=== PATIENT | male | born 1950 | race Caucasian/White ===

== ENCOUNTER 2016-05-11 14:50 | Emergency (ER) | payer OTHER ==
[~2016-05-11 14:50] MED LIST: ACETAMINOPHEN500 MG PO; BENAZEPRIL HCL20 MG PO; CARDIZEM LA180 MG PO; CELEBREX200 MG PO; COLACE EQUIVALENT PO; DIGOXIN0.25 MG PO; FISH OIL TRIP1400 MG PO; GUANFACINE ER2 MG PO; HYDROXYZINE PAM25 MG PO; LOVENOX60 MG/0.6 SC; METOPROLOL TART25 MG PO; MULTIVITAMIN1 TAB PO; OMEPRAZOLE20 M1 PO; OXYCODONE/ACETA1 TA1 PO; VENLAFAXINE HC150 M1 PO; VITAMIN D-31000 UNIT PO; WARFARIN SODIUM5 MG PO; WELLBUTRIN SR150 MG PO; [UNRECOGNIZED DRUG - OTHER] PO
--- NOTE | 2016-05-11 16:26 | DIAGNOSTIC IMAGING REPORT ---
PROCEDURE: XR CHEST 2 VIEW INDICATION: SHORTNESS OF BREATH TECHNIQUE: PA and lateral views. COMPARISON: PA and lateral chest 06/03/2015 FINDINGS: Mildly enlarged heart. Normal aortic contour. No central vascular congestion. Moderate bilateral pleural thickening, right more extensive than left. Pulmonary parenchyma appears clear IMPRESSION: 1. No acute infiltrates
--- NOTE | 2016-05-11 17:48 | DIAGNOSTIC IMAGING REPORT ---
PROCEDURE: CTA THORAX WITH CONTRAST INDICATION: Cough. Shortness of breath. History of pulmonary embolus (D-dimer 1.06) TECHNIQUE: 108 ml of Isovue 370 was injected intravenously and axial images were obtained of the entire thorax with 3D sagittal and coronal MIP reconstructions. COMPARISON: Comparison made to chest x-ray earlier today (05/11/2016). FINDINGS: There are mild parenchymal changes and volume loss at the right posterior lung base. There is a 4 mm old calcified granuloma at the right lung base. Lungs are otherwise clear. There is evidence of intrathoracic lipomatosis (incidental finding). Pulmonary vessels are normal and there is no evidence of pulmonary embolus. Heart is of normal size with moderate right left coronary vascular calcifications. Mediastinum is normal (tortuous aorta). Moderate degenerative change of the thoracic spine. IMPRESSION: 1. There are mild parenchymal changes at the right posterior lung base which could represent early pneumonitis (e.g., bacterial, Mycoplasma). 2. Moderate left and right coronary vascular calcifications. 3. No evidence of pulmonary embolus. 4. Findings discussed with Dr. Sheryl Garcia. All CT scans at this facility use dose modulation, iterative reconstruction, and/or weight-based dosing when appropriate to reduce radiation dose to as low as reasonably achievable.
--- NOTE | 2016-05-11 18:18 | ED NURSING NOTES ---
Clinical Report - Nurses [facility] [address] [place] [address] 05/11/2016 14:51 Patient: NGOC SUTTON TRIAGE Triage time 15:00 May 11 2016. Acuity: LEVEL 3. Chief Complaint: (anxiety and dyspnea, hx of pe). 15:10 05/11/16. --15:11 Rashmi Tao R.N. 15:10 05/11/16. BP: 122/80. HR: 88. RR: 20. O2 saturation: 97%. Pain level now 07/23. --15:11 Rashmi Tao R.N. 18:38 05/11/16. Temp: 99.2 F. --18:38 Rashmi Tao R.N. Weight: 127 kg stated. Height/Length: 74 inches Per Patient. BMI: 36. --14:59 Rashmi Tao R.N. Medications Coumadin Oral (Tablet 10 mg) 1 tablet, at bedtime. --15:02 Rashmi Tao R.N. Benazepril HCl Oral (Tablet 20 mg) 1 tablet, daily. Metoprolol 200mg, 2x a day. --15:10 Rashmi Tao R.N. Allergies Codeine. --15:01 Rashmi Tao R.N. Medication/allergy information source: the patient. --15:11 Rashmi Tao R.N. History Arrived by private vehicle. Historian: patient. Accompanied by family. Primary physician (Ambrosio). Onset. (3 days ago). ( Cough, milky sputum, small amt, pain with cough. Flight from [place] on 04/20. no recent car trips. Is anticoagulated with coumadin for chronic a-fib.). He has had a cough and difficulty breathing. No fever, weakness or skin rash. Denies muscle aches. Treatment SENIOR TECHNICAL SUPPORT ENGINEER: None. PAST MEDICAL HX: Immunizations: seasonal influenza. SOCIAL HX: Heavy tobacco smoker (cigarette)- 1 pack per day. No alcohol use or drug use. No infectious disease exposure. ABUSE ASSESSMENT: No report of abuse. SELF HARM ASSESSMENT: A self harm assessment was performed. The patient answered "no" to the question "Have you recently felt down, depressed, or hopeless?", "Have you noticed less interest or pleasure in doing things?", "Do you have thoughts of harming or killing yourself?", "Are you here because you tried to hurt yourself?", "Have you ever tried to hurt yourself before today?", "Have you recently had thoughts about harming or killing others?" and "Do you have any dangerous items in your possession?". FALL RISK ASSESSMENT: Fall risk assessment completed. No fall risk identified. NUTRITIONAL RISK ASSESSMENT: The nutritional risk assessment revealed no deficiencies. FUNCTIONAL ASSESSMENT: Functional assessment: no impairments noted. LEARNING NEEDS ASSESSMENT: The learning needs assessment revealed no barriers. SKIN INTEGRITY ASSESSMENT: Skin integrity risk assessment completed. No skin integrity risk identified. --15:11 Rashmi Tao R.N. PROBLEMS: Depression. DVT - Deep Venous Thrombosis. Tetanus Status. Pulmonary Embolism. Hypertension. Atrial Fibrillation. --15:05 Rashmi Tao R.N. ADDITIONAL SURGERIES: Hernia Repair. Knee Surgery. --15:05 Rashmi Tao R.N. Interventions ID band on patient. --15:11 Rashmi Tao R.N. NURSING PROGRESS NOTES 15:11 05/11/16. The initial plan of care for this patient includes an assessment with efforts to address the presence of pain; impairment of the respiratory system. This plan of care was discussed with the patient. motor vehicle escort driver, pulse oximeter and NIBP monitor placed on patient; traveling missionary- Lead II; monitor alarms on. Patient gowned. Patient identifiers checked. Call light placed in reach. Side rails up x 1. Bed placed in lowest position. Brakes of bed on. --15:11 Rashmi Tao R.N. 15:22 05/11/2016 Site #1 started via IV in the left forearm with an 20g angiocath, with aseptic technique and good blood return; two attempts. Blood drawn: rainbow set. Labeled in the presence of the patient and sent to the lab. Saline lock flushed with 10 mL saline. --15:22 Masha Rivera R.N. 15:30 05/11/16. Patient ID band checked for patient name and birthdate: patient confirmed. Flu swab obtained by RN via nasal swab. Labeled in the presence of the patient and sent to lab. --15:37 Rashmi Tao R.N. EKG time: (15:36). EKG was performed by a tech and shown to the ED physician. --15:57 Peyton Lr 16:11 05/11/16. Patient transported to radiology by stretcher. (and returned). --16:11 Rashmi Tao R.NMadyson 16:12 05/11/16. Cardiac rhythm: atrial fibrillation. The patient is calm and resting quietly. RESPIRATORY: No respiratory distress. SKIN: Skin is warm and dry. --16:12 Rashmi Tao R.NMadyson 16:12 05/11/16. BP: 105/73. HR: 83. RR: 20. O2 saturation: 96%. Pain level now 10. --16:12 Rashmi Tao R.N. 16:46 05/11/16. BP: 114/76. HR: 78. RR: 20. O2 saturation: 98%. Pain level now 10. --16:46 Rashmi Tao R.N. 16:46 05/11/16. Cardiac rhythm: atrial fibrillation. The patient is calm and resting quietly. Overall patient status is the same- he states feels the same. SKIN: Skin is warm and dry. --16:46 Rashmi Tao R.NMadyson 16:54 05/11/16. Patient transported to CT by stretcher. --16:54 Rashmi Tao R.NMadyson 17:05 05/11/16. BP: 92/78. HR: 80 (irregular). RR: 20. O2 saturation: 98%. Pain level now: 4/10. --17:32 Rashmi Tao R.N. 17:05 05/11/16. Patient returned from CT by kanu. ( personnel and payroll technician reports patient has nausea.). --17:32 Rashmi Tao R.N. <<STRICKEN ENTRY-- 17:09 05/11/2016 Zofran (Ondansetron HCl) IVP 8 mg given over 1 minute(s) via site #1. Allergies verified and confirmed 5 rights. IV patency established. IV site checked: no pain, redness, or swelling. IV flushed thoroughly pre- and post-medication administration. IVP given by RN. --17:09 Rashmi Tao R.N. --END STRIKE>> Correction. Patient declined, states that nausea resolved --17:12 Rashmi Tao R.N. 17:55 05/11/2016 Started 2 gm of Rocephin (CefTRIAXone Sodium) IVPB in bag #1 50 mL; at 250 mL/hr over 15 minute(s) via site #1; Allergies verified and confirmed 5 rights. IV patency established. IV site checked: no pain, redness, or swelling. IV flushed thoroughly pre- and post-medication administration. --17:55 Rashmi Tao R.N. 17:55 05/11/2016 Zithromax PO Tablets 500 mg given. Allergies verified and confirmed 5 rights. --17:55 Rashmi Tao R.N. 18:15 05/11/2016 Rocephin IVPB Discontinued: completed. Total amount infused: 50 mL. IV patency established. IV site checked: no pain, redness, or swelling. IV flushed thoroughly. --18:15 Rashmi Tao R.N. DISPOSITION / DISCHARGE 18:28 05/11/2016 Site #1 removed upon discharge. Catheter intact. Bandage applied. --18:37 Rashmi Tao R.N. 18:30 05/11/16. Departure time: 18:30 May 11 2016. Cardiac rhythm: atrial fibrillation. Condition at departure: improved and stable. The goals identified in the patient's plan of care were met. No learning barriers present. Discharge instructions provided and reviewed with the patient. Reviewed medication(s) side effects, precautions, dosing and course information. Prescription(s) given to the patient. Reviewed referral to a primary care physician for followup. Patient verbalized understanding. Written instructions provided in Armenian. The patient was discharged home and accompanied by spouse. He left the Emergency Department ambulatory and via private vehicle. Spouse driving. FALL RISK ASSESSMENT: Fall risk assessment completed. No fall risk identified. --18:38 Rashmi Tao R.N. 18:30 05/11/16. BP: 105/63. HR: 81. RR: 18. O2 saturation: 98%. Temp: 98.6 F. Pain level now 06/22. --18:38 Rashmi Tao R.N. Locked/Released at 05/11/2016 18:39 by Rashmi Tao R.N.
--- NOTE | 2016-05-11 18:18 | ED ORDER SUMMARY ---
..... Patient: NGOC SUTTON OrderSheet [facility] VisitID: [id number] [place] [address] 65y, M Registration Date/Time: 05/11/2016 ORDER SHEET Weight: 127.0 kg (stated) Allergies: Codeine GENERAL ORDERS: Aco Coordinator (Continuous) (Respiratory Distress) (15:24 05/11/2016 EInderbitzen R.N. verbal order read back to Anne Marie MCKINNEY) (15:26 EInderbitzen R.N.) Rapid Influenza Screen (Nasal Pharyngeal) (hot dog vendor swab) Urgent (15:05/11/2016 EInderbitzen R.N. verbal order read back to Anne Marie MCKINNEY) (Ack 15:30 LTapper) (16:20 EInderbitzen R.N.) Chest 2V Urgent (15:05/11/2016 EInderbitzen R.N. verbal order read back to Anne Marie MCKINNEY) (Ack 15:30 LTapper) (16:17 MCampbell) CBC w Diff Urgent (15:26 05/11/2016 EInderbitzen R.N. verbal order read back to Anne Marie MCKINNEY) (Ack 15:30 LTapper) (16:20 EInderbitzen R.N.) CMP Urgent (15:05/11/2016 EInderbitzen R.N. verbal order read back to Anne Marie MCKINNEY) (Ack 15:30 LTapper) (16:20 EInderbitzen R.N.) Cardiac Panel Stat (15:05/11/2016 EInderbitzen R.N. verbal order read back to Anne Marie MCKINNEY) (Ack 15:30 LTapper) (16:20 EInderbitzen R.N.) PT with INR Urgent (15:05/11/2016 EInderbitzen R.N. verbal order read back to Anne Marie MCKINNEY) (Ack 15:30 LTapper) (16:20 EInderbitzen R.N.) PTT Urgent (15:05/11/2016 EInderbitzen R.N. verbal order read back to Anne Marie MCKINNEY) (Ack 15:30 LTapper) (16:20 EInderbitzen R.N.) Pulse oximeter (15:26 05/11/2016 EIndercicizen R.N. verbal order read back to Anne Marie MCKINNEY) (15:26 EInderbitzen R.N.) EKG - ER Stat (15:26 05/11/2016 EIndercicizen R.N. verbal order read back to Anne Marie MCKINNEY) (Ack 15:30 LTapper) (15:39 RKaruga) D-Dimer Urgent (15:33 05/11/2016 LSullivan R.N. verbal order read back to Anne Marie MCKINNEY) (Ack 15:35 LTapper) (16:20 EInderbitzen R.N.) CTA Thorax w Cont (No) (WNL) Urgent (16:24 05/11/2016 EInderbitzen R.N. verbal order read back to Anne Marie MCKINNEY) (Ack 16:36 LTapper) (17:07 LSullivan R.N.) MEDICATION ORDERS: Zithromax PO 500 mg (NOW) (17:47 05/11/2016 Anne Marie MCKINNEY) (17:55 EInderbitzen R.N.) IV FLUIDS: IV Saline Lock (15:22 05/11/2016 Josie R.N. verbal order read back to Anne Marie MCKINNEY) (15:22 LSullivan R.N.) Zofran IV 8 mg (NOW) (17:07 05/11/2016 Anne Marie MCKINNEY) (Cancelled: Patient Ykvvyzw10:12 EInderbitzen R.N.) Rocephin IV 2 gm/50mL (NOW) (17:47 05/11/2016 Anne Marie MCKINNEY) (17:55 EInderbitzen R.N.) ORDER SHEET NOTES: [Electronically signed by Rashmi Tao R.N. (18:39 05/11/2016)] [Electronically signed by Sheryl Garcia MD (16:12 05/17/2016)] [Electronically locked/signed by Rashmi Tao R.N. (18:39 05/11/2016)]
--- NOTE | 2016-05-11 18:18 | ED CLINICAL REPORT ---
Clinical Report - Physicians/Mid Levels [facility] [address] [address] 05/11/2016 14:51 Patient: NGOC SUTTON Time Seen: 15:00. Arrived- By private vehicle. Historian- patient. HISTORY OF PRESENT ILLNESS Chief Complaint: DYSPNEA. This started about 3 days ago and is still present. The dyspnea is described as mild and is worsened by cough and is improved by rest. The patient has had a cough. He has had scant amounts of thin, white sputum. No fever, sweating episodes, wheezing, chills or dyspnea on exertion. No chest pain or discomfort, calf pain, foot swelling or orthopnea. No anxiety, dizziness, tingling, numbness or palpitations. Similar symptoms previously: ( PT is concerned that he may have had another PE. Pt flew back from [place] on 04/20.). Recent medical care: The patient was seen recently at another facility. ( Pt was seen by Franci Arboleda, and sent here for further work-up.). REVIEW OF SYSTEMS The patient has not had weight loss. No muscle aches, eye irritation, sore throat, nasal discharge or sinus drainage. No nausea, vomiting, abdominal pain, diarrhea or black stools. No bloody stools, headache, fainting episodes, blurred vision or difficulty with urination. No skin rash, enlarged lymph nodes or joint pain. All systems otherwise negative, except as recorded above. PAST HISTORY Problems: Alcohol Intoxication. Depression. DVT - Deep Venous Thrombosis. Tetanus Status. Immunizations. Pulmonary Embolism. Hypertension. Atrial Fibrillation. Additional Surgeries: Hernia Repair. Knee Surgery. Medications: Benazepril HCl Oral (Tablet 20 mg) 1 tablet, daily. Metoprolol 200mg, 2x a day. Coumadin Oral (Tablet 10 mg) 1 tablet, at bedtime. Allergies: Codeine. SOCIAL HISTORY Smoker- current status unknown. No alcohol use or drug use. ADDITIONAL NOTES The nursing notes have been reviewed. PHYSICAL EXAM Vital Signs: 05/11/2016 18:30 BP: 105/63. HR: 81. RR: 18. O2 saturation: 98%. Temp: 98.6 F. 05/11/2016 15:10 BP: 122/80. HR: 88. RR: 20. O2 saturation: 97%. Have been reviewed. Appearance: Alert. No acute distress. Eyes: Pupils equal, round and reactive to light. Eyes normal inspection. ENT: Nose normal. Neck: Normal inspection. CVS: Normal heart rate and rhythm. Heart sounds normal. Pulses normal. Respiratory: No respiratory distress. Breath sounds normal. Abdomen: Soft and nontender. Back: Normal inspection. No CVA tenderness. Skin: Skin warm and dry. Normal skin color. No rash. Normal skin turgor. Extremities: Extremities exhibit normal ROM. No lower extremity edema. Neuro: Oriented X 3. No motor deficit. No sensory deficit. LABS, X-RAYS, AND EKG EKG: EKG time: (1536). No acute ischemia. Rate: 80. Atrial fibrillation. Abnormal P waves. Normal QRS complex. Normal axis. Normal ST and T waves, QT and QTc. Prior EKG unavailable. The study has been interpreted contemporaneously by me. The study has been independently viewed by me. The EKG appears to be a good tracing. I agree with and confirm the computer reading of the EKG. Rhythm Strip #1: Time: (1500). Rate= 84. Atrial fibrillation. Narrow QRS complexes. Irregularly irregular rhythm. No ectopy. Conduction normal. Normal ST segments and T waves. The study was interpreted by me. Chest X-ray: Infiltrate present. Normal heart size. Mediastinum normal. Great vessels normal. Soft tissues normal. No fracture. No bony lesion present. Views: PA and lateral. Technique: good. The X-rays were independently viewed by me, interpreted by the radiologist and contemporaneously by me and discussed with the radiologist. Prior films were not available for comparison. Chest CT: Infiltrate present. Great vessels normal. Mediastinum normal. No fractures noted. Chest CT performed with contrast. The study was independently viewed by me, interpreted by the radiologist and contemporaneously by me and discussed with the radiologist. Prior studies were not available for comparison. Laboratory Tests: CBC w Diff: (ELEUTERIO: 05/11/2016 15:18) ( MsgRcvd 05/11/2016 15:37) Final results Test Result Flag Units (Reference) WHITE BLOOD COUNT 6.1 K/uL (4.5-11.5) RED BLOOD COUNT 5.74 M/uL (4.50-5.90) HEMOGLOBIN 16.8 gm/dL (13.5-17.5) HEMATOCRIT 50.0 % (41.0-53.0) MEAN CELL VOLUME 87 fL (80-100) MEAN CORPUSCULAR HGB 29 pg (26-34) MEAN CORPUSCULAR HGB CONC 34 g/dL (31-37) RED CELL DISTRIBUTION WIDTH 15.7 H % (11.6-14.8) PLATELET COUNT 192 K/uL (150-400) NEUTROPHIL % 70.9 % (50-75) LYMPH % 19.4 L % (25-40) MONO % 6.9 % (3-14) EOSINOPHIL % 2.3 % (0-4) BASOPHIL % 0.5 % (0-2) [id number]: (ELEUTERIO: 05/11/2016 15:18) ( MsgRcvd 05/11/2016 15:46) Final results Test Result Flag Units (Reference) D-DIMER QUANTITATIVE 1.06 H ug/mLFEU (0.27-0.52) The primary value of this quantitative assay relates toits negative predictive value (i.e. exclusion) of pulmonaryembolism/deep vein thrombosis/DIC.Elevated levels of d-dimer may also occur with:, age, cancer, inflammation, liver disease,post-op, infection, hematoma, coronary disease, peripheralarteriopathy, bleeding disorders and thrombolytic treatment.Results should be correlated with other clinical andradiological data.Testing Methodology: Latex Immunoassay PT with INR: (ELEUTERIO: 05/11/2016 15:18) ( MsgRcvd 05/11/2016 15:44) Final results Test Result Flag Units (Reference) INR 1.9 H (0.8-1.2) Low Intensity Therapy: INR 1.5-2.0 PT range 18.5-23.1Mod.Intensity Therapy: INR 2.0-3.0 PT range 23.1-31.5High Intensity Therapy: INR 2.5-3.5 PT range 27.4-35.5High Intensity Therapy 2: INR 3.0-4.0 PT range 31.5-39.3 APTT 42 H SECONDS (24-34) CHEM 13 PANEL: (ELEUTERIO: 05/11/2016 15:18) ( MsgRcvd 05/11/2016 15:53) Final results Test Result Flag Units (Reference) GLUCOSE 160 H mg/dL (70-110) BUN 18 mg/dL (7-18) CREATININE 1.1 mg/dL (0.6-1.3) Estimated GFR >60 mL/min Estimated GFR- >60 mL/min Note: Persistent reduction over 3 months in eGFR<60 mL/min/1.73 m2 defines CKD. Patients with eGFR values>=60 mL/min/1.73 m2 may also have CKD if evidence ofpersistent proteinuria. Additional information may be foundat www.kidney.org. SODIUM 140 mmol/L (136-145) POTASSIUM 4.2 mmol/L (3.5-5.1) CHLORIDE 104 mmol/L (98-107) CARBON DIOXIDE 27 mmol/L (21-32) CALCIUM 8.2 L mg/dL (8.5-10.1) TOTAL PROTEIN 7.1 g/dL (6.4-8.2) ALBUMIN 3.5 g/dL (3.3-5.0) BILIRUBIN, TOTAL 0.4 mg/dL (0.0-1.0) ALKALINE PHOSPHATASE 67 U/L (46-116) AST (SGOT) 21 U/L (15-37) ALT (SGPT) 37 U/L (12-78) MAGNESIUM 2.0 mg/dL (1.8-2.4) CPK 99 U/L (24-260) TROPONIN I <0.05 L ng/mL (0.00-1.5) TROPONIN REFERENCE RANGE:<0.1 NEGATIVE0.1-1.5 INDETERMINANT>1.5 POSITIVE Rapid Influenza Screen: (ELEUTERIO: 05/11/2016 15:30) ( MsgRcvd 05/11/2016 15:53) Final results SPECIMEN DESCRIPTION: MACHINE PACKAGING TECHNICIAN SWAB Test Result Flag Units (Reference) RAPID INFLUENZA SCREEN DATE: 05/11/16 INFLUENZA A: NEGATIVE SCREEN FOR INFLUENZA A INFLUENZA B: NEGATIVE SCREEN FOR INFLUENZA B . Pulse Oximetry: 05/11/2016 15:10 O2 saturation: 97%. (FIO2 - room air). Interpretation: normal. PROGRESS AND PROCEDURES Course of Care: PT was worked up for PE, as he did have a known h/o DVT and PE. He was found to have a small pneumonia, but no PE. Pt was given Rocephin and Zithromax. His INR was 1.9, and I did d/w him that ideally, we would like this to be a little higher. As such, we will temporarily increase his Coumadin dose, and I have advised him to f/u with Dr. Poe's office on Saturday (today is Saturday) for a repeat INR. Patient and spouse counseled in person regarding the patient's stable condition, test results, diagnosis and need for follow-up. Concerns were addressed. Old medical records reviewed. Disposition: Discharged. Condition: stable. CLINICAL IMPRESSION Bacterial pneumonia. Vital signs recorded and reviewed; empiric antibiotics given in the ED. No hypoxemia, respiratory failure or sepsis. Clinical picture does not suggest pulmonary embolism. INSTRUCTIONS (Your INR was 1.9, which is a little lower than the target level. You may take an extra 1/2 tab of your Coumadin over the weekend, then go to Dr. Poe's office on Saturday to have your INR rechecked.). Warnings: GENERAL WARNINGS: Return or contact your physician immediately if your condition worsens or changes unexpectedly, if not improving as expected, or if other problems arise. Your Current Medications: CONTINUE TAKING THE FOLLOWING MEDICATIONS: Benazepril HCl Oral : Tablet 20 mg, 1 tablet daily. Coumadin Oral : Tablet 10 mg, 1 tablet at bedtime. Metoprolol* : 200mg 2x a day. Prescription Medications: Zithromax Z-Lukasz: Take according to package instructions 2 orally today, followed by 1 orally every day for the next 4 days. Total course 5 days. No refills. Substitution is permissible. Follow-up: Follow up with your doctor in seven days if not better. Understanding of the discharge instructions verbalized by patient. (Electronically signed by Sheryl Garcia MD 05/17/2016 16:12)
--- NOTE | 2016-05-11 18:18 | ED ORDER SUMMARY ---
..... Patient: NGOC SUTTON OrderSheet [facility] VisitID: [id number] [place] [address] 65y, M Registration Date/Time: 05/11/2016 ORDER SHEET Weight: 127.0 kg (stated) Allergies: Codeine GENERAL ORDERS: Motor Scooter Repairer (Continuous) (Respiratory Distress) (15:24 05/11/2016 EInderbitzen R.N. verbal order read back to Anne Marie MCKINNEY) (15:26 EInderbitzen R.N.) Rapid Influenza Screen (Nasal Pharyngeal) (meat cutter apprentice swab) Urgent (15:05/11/2016 EInderbitzen R.N. verbal order read back to Anne Marie MCKINNEY) (Ack 15:30 LTapper) (16:20 EInderbitzen R.N.) Chest 2V Urgent (15:05/11/2016 EInderbitzen R.N. verbal order read back to Anne Marie MCKINNEY) (Ack 15:30 LTapper) (16:17 MCampbell) CBC w Diff Urgent (15:26 05/11/2016 EInderbitzen R.N. verbal order read back to Anne Marie MCKINNEY) (Ack 15:30 LTapper) (16:20 EInderbitzen R.N.) CMP Urgent (15:05/11/2016 EInderbitzen R.N. verbal order read back to Anne Marie MCKINNEY) (Ack 15:30 LTapper) (16:20 EInderbitzen R.N.) Cardiac Panel Stat (15:05/11/2016 EInderbitzen R.N. verbal order read back to Anne Marie MCKINNEY) (Ack 15:30 LTapper) (16:20 EInderbitzen R.N.) PT with INR Urgent (15:05/11/2016 EInderbitzen R.N. verbal order read back to Anne Marie MCKINNEY) (Ack 15:30 LTapper) (16:20 EInderbitzen R.N.) PTT Urgent (15:05/11/2016 EInderbitzen R.N. verbal order read back to Anne Marie MCKINNEY) (Ack 15:30 LTapper) (16:20 EInderbitzen R.N.) Pulse oximeter (15:26 05/11/2016 EIndercicizen R.N. verbal order read back to Anne Marie MCKINNEY) (15:26 EInderbitzen R.N.) EKG - ER Stat (15:26 05/11/2016 EIndercicizen R.N. verbal order read back to Anne Marie MCKINNEY) (Ack 15:30 LTapper) (15:39 RKaruga) D-Dimer Urgent (15:33 05/11/2016 LSullivan R.N. verbal order read back to Anne Marie MCKINNEY) (Ack 15:35 LTapper) (16:20 EInderbitzen R.N.) CTA Thorax w Cont (No) (WNL) Urgent (16:24 05/11/2016 EInderbitzen R.N. verbal order read back to Anne Marie MCKINNEY) (Ack 16:36 LTapper) (17:07 LSullivan R.N.) MEDICATION ORDERS: Zithromax PO 500 mg (NOW) (17:47 05/11/2016 Anne Marie MCKINNEY) (17:55 EInderbitzen R.N.) IV FLUIDS: IV Saline Lock (15:22 05/11/2016 Josie R.N. verbal order read back to Anne Marie MCKINNEY) (15:22 LSullivan R.N.) Zofran IV 8 mg (NOW) (17:07 05/11/2016 Anne Marie MCKINNEY) (Cancelled: Patient Vthrxhl18:12 EInderbitzen R.N.) Rocephin IV 2 gm/50mL (NOW) (17:47 05/11/2016 Anne Marie MCKINNEY) (17:55 EInderbitzen R.N.) ORDER SHEET NOTES: [Electronically signed by Rashmi Tao R.N. (18:39 05/11/2016)] [Electronically signed by Sheryl Garcia MD (16:12 05/17/2016)] [Electronically locked/signed by Rashmi Tao R.N. (18:39 05/11/2016)]
--- NOTE | 2016-05-11 18:18 | ED NURSING NOTES ---
Clinical Report - Nurses [facility] [address] [place] [address] 05/11/2016 14:51 Patient: NGOC SUTTON TRIAGE Triage time 15:00 May 11 2016. Acuity: LEVEL 3. Chief Complaint: (anxiety and dyspnea, hx of pe). 15:10 05/11/16. --15:11 Rashmi Tao R.N. 15:10 05/11/16. BP: 122/80. HR: 88. RR: 20. O2 saturation: 97%. Pain level now 07/23. --15:11 Rashmi Tao R.N. 18:38 05/11/16. Temp: 99.2 F. --18:38 Rashmi Tao R.N. Weight: 127 kg stated. Height/Length: 74 inches Per Patient. BMI: 36. --14:59 Rashmi Tao R.N. Medications Coumadin Oral (Tablet 10 mg) 1 tablet, at bedtime. --15:02 Rashmi Tao R.N. Benazepril HCl Oral (Tablet 20 mg) 1 tablet, daily. Metoprolol 200mg, 2x a day. --15:10 Rashmi Tao R.N. Allergies Codeine. --15:01 Rashmi Tao R.N. Medication/allergy information source: the patient. --15:11 Rashmi Tao R.N. History Arrived by private vehicle. Historian: patient. Accompanied by family. Primary physician (Ambrosio). Onset. (3 days ago). ( Cough, milky sputum, small amt, pain with cough. Flight from [place] on 04/20. no recent car trips. Is anticoagulated with coumadin for chronic a-fib.). He has had a cough and difficulty breathing. No fever, weakness or skin rash. Denies muscle aches. 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 PAST MEDICAL HX: Immunizations: seasonal influenza. SOCIAL HX: Heavy tobacco smoker (cigarette)- 1 pack per day. No alcohol use or drug use. No infectious disease exposure. ABUSE ASSESSMENT: No report of abuse. SELF HARM ASSESSMENT: A self harm assessment was performed. The patient answered "no" to the question "Have you recently felt down, depressed, or hopeless?", "Have you noticed less interest or pleasure in doing things?", "Do you have thoughts of harming or killing yourself?", "Are you here because you tried to hurt yourself?", "Have you ever tried to hurt yourself before today?", "Have you recently had thoughts about harming or killing others?" and "Do you have any dangerous items in your possession?". FALL RISK ASSESSMENT: Fall risk assessment completed. No fall risk identified. NUTRITIONAL RISK ASSESSMENT: The nutritional risk assessment revealed no deficiencies. FUNCTIONAL ASSESSMENT: Functional assessment: no impairments noted. LEARNING NEEDS ASSESSMENT: The learning needs assessment revealed no barriers. SKIN INTEGRITY ASSESSMENT: Skin integrity risk assessment completed. No skin integrity risk identified. --15:11 Rashmi Tao R.N. PROBLEMS: Depression. DVT - Deep Venous Thrombosis. Tetanus Status. Pulmonary Embolism. Hypertension. Atrial Fibrillation. --15:05 Rashmi Tao R.N. ADDITIONAL SURGERIES: Hernia Repair. Knee Surgery. --15:05 Rashmi Tao R.N. Interventions ID band on patient. --15:11 Rashmi Tao R.N. NURSING PROGRESS NOTES 15:11 05/11/16. The initial plan of care for this patient includes an assessment with efforts to address the presence of pain; impairment of the respiratory system. This plan of care was discussed with the patient. traffic monitor specialist, pulse oximeter and NIBP monitor placed on patient; nurse monitoring- Lead II; monitor alarms on. Patient gowned. Patient identifiers checked. Call light placed in reach. Side rails up x 1. Bed placed in lowest position. Brakes of bed on. --15:11 Rashmi Tao R.N. 15:22 05/11/2016 Site #1 started via IV in the left forearm with an 20g angiocath, with aseptic technique and good blood return; two attempts. Blood drawn: rainbow set. Labeled in the presence of the patient and sent to the lab. Saline lock flushed with 10 mL saline. --15:22 Masha Rivera R.N. 15:30 05/11/16. Patient ID band checked for patient name and birthdate: patient confirmed. Flu swab obtained by RN via nasal swab. Labeled in the presence of the patient and sent to lab. --15:37 Rashmi Tao R.N. EKG time: (15:36). EKG was performed by a tech and shown to the ED physician. --15:57 Peyton Lr 16:11 05/11/16. Patient transported to radiology by stretcher. (and returned). --16:11 Rashmi Tao R.NMadyson 16:12 05/11/16. Cardiac rhythm: atrial fibrillation. The patient is calm and resting quietly. RESPIRATORY: No respiratory distress. SKIN: Skin is warm and dry. --16:12 Rashmi Tao R.NMadyson 16:12 05/11/16. BP: 105/73. HR: 83. RR: 20. O2 saturation: 96%. Pain level now 10. --16:12 Rashmi Tao R.N. 16:46 05/11/16. BP: 114/76. HR: 78. RR: 20. O2 saturation: 98%. Pain level now 10. --16:46 Rashmi Tao R.N. 16:46 05/11/16. Cardiac rhythm: atrial fibrillation. The patient is calm and resting quietly. Overall patient status is the same- he states feels the same. SKIN: Skin is warm and dry. --16:46 Rashmi Tao R.NMadyson 16:54 05/11/16. Patient transported to CT by stretcher. --16:54 Rashmi Tao R.NMadyson 17:05 05/11/16. BP: 92/78. HR: 80 (irregular). RR: 20. O2 saturation: 98%. Pain level now: 4/10. --17:32 Rashmi Tao R.N. 17:05 05/11/16. Patient returned from CT by kanu. ( certified medical technician reports patient has nausea.). --17:32 Rashmi Tao R.N. <<STRICKEN ENTRY-- 17:09 05/11/2016 Zofran (Ondansetron HCl) IVP 8 mg given over 1 minute(s) via site #1. Allergies verified and confirmed 5 rights. IV patency established. IV site checked: no pain, redness, or swelling. IV flushed thoroughly pre- and post-medication administration. IVP given by RN. --17:09 Rashmi Tao R.N. --END STRIKE>> Correction. Patient declined, states that nausea resolved --17:12 Rashmi Tao R.N. 17:55 05/11/2016 Started 2 gm of Rocephin (CefTRIAXone Sodium) IVPB in bag #1 50 mL; at 250 mL/hr over 15 minute(s) via site #1; Allergies verified and confirmed 5 rights. IV patency established. IV site checked: no pain, redness, or swelling. IV flushed thoroughly pre- and post-medication administration. --17:55 Rashmi Tao R.N. 17:55 05/11/2016 Zithromax PO Tablets 500 mg given. Allergies verified and confirmed 5 rights. --17:55 Rashmi Tao R.N. 18:15 05/11/2016 Rocephin IVPB Discontinued: completed. Total amount infused: 50 mL. IV patency established. IV site checked: no pain, redness, or swelling. IV flushed thoroughly. --18:15 Rashmi Tao R.N. DISPOSITION / DISCHARGE 18:28 05/11/2016 Site #1 removed upon discharge. Catheter intact. Bandage applied. --18:37 Rashmi Tao R.N. 18:30 05/11/16. Departure time: 18:30 May 11 2016. Cardiac rhythm: atrial fibrillation. Condition at departure: improved and stable. The goals identified in the patient's plan of care were met. No learning barriers present. Discharge instructions provided and reviewed with the patient. Reviewed medication(s) side effects, precautions, dosing and course information. Prescription(s) given to the patient. Reviewed referral to a primary care physician for followup. Patient verbalized understanding. Written instructions provided in Telugu. The patient was discharged home and accompanied by spouse. He left the Emergency Department ambulatory and via private vehicle. Spouse driving. FALL RISK ASSESSMENT: Fall risk assessment completed. No fall risk identified. --18:38 Rashmi Tao R.N. 18:30 05/11/16. BP: 105/63. HR: 81. RR: 18. O2 saturation: 98%. Temp: 98.6 F. Pain level now 06/22. --18:38 Rashmi Tao R.N. Locked/Released at 05/11/2016 18:39 by Rashmi Tao R.N.
--- NOTE | 2016-05-17 16:13 | ED DISCHARGE INSTRUCTIONS ---
Patient: NGOC SUTTON General Instructions [facility] VisitID: [id number] [place] [address] 65y, M Registration Date/Time: 05/11/2016 Bacterial pneumonia. Vital signs recorded and reviewed; empiric antibiotics given in the ED. No hypoxemia, respiratory failure or sepsis. INSTRUCTIONS (Your INR was 1.9, which is a little lower than the target level. You may take an extra 1/2 tab of your Coumadin over the weekend, then go to Dr. Poe's office on Saturday to have your INR rechecked.). Warnings: GENERAL WARNINGS: Return or contact your physician immediately if your condition worsens or changes unexpectedly, if not improving as expected, or if other problems arise. Your Current Medications: CONTINUE TAKING THE FOLLOWING MEDICATIONS: Benazepril HCl Oral : Tablet 20 mg, 1 tablet daily. Coumadin Oral : Tablet 10 mg, 1 tablet at bedtime. Metoprolol* : 200mg 2x a day. Prescription Medications: Zithromax Z-Lukasz: Take according to package instructions 2 orally today, followed by 1 orally every day for the next 4 days. Total course 5 days. No refills. Substitution is permissible. Follow-up: Follow up with your doctor in seven days if not better. Understanding of the discharge instructions verbalized by patient. ADDITIONAL INFORMATION Pneumonia (Adult) Pneumonia is an infection deep within the lung, in the small air sacs (alveoli). It may be due to a virus or bacteria and is usually treated with an antibiotic. Severe cases require treatment in the hospital. Milder cases can be treated at home. Symptoms usually start to improve during the first2 days of treatment. Home Care: Rest at home for the first 23 days or until you feel stronger. When resuming activity, dont let yourself become overly tired. Avoid exposure to cigarette smoke (yours or others). You may use acetaminophen (Tylenol) or ibuprofen (Motrin, Advil) to control fever or pain, unless another medicine was prescribed. [NOTE: If you have chronic liver or kidney disease or ever had a stomach ulcer or GI bleeding, talk with your doctor before using these medicines.] (Aspirin should never be used in anyone under 18 years of age who is ill with a fever. It may cause severe liver damage.) Your appetite may be poor so a light diet is fine. Keep well hydrated by drinking 68 glasses of fluids per day (water, sport drinks such as Gatorade, sodas without caffeine, juices, tea, soup, etc.). This will help loosen secretions in the lung, making it easier for you to cough up the phlegm (sputum). If you also have heart or kidney disease, check with your doctor before you drink extra amounts of fluids. Finish all antibiotic medicine prescribed, even if you are feeling better after a few days. Follow Up with your doctor in the next 23 days (or as advised) to be sure you are responding properly to the medicine. [NOTE: If you are age 65 or older, or if you have chronic lung disease (asthma, emphysema or COPD), we recommendthe pneumococcal vaccination and a yearlyinfluenzavaccination(flu-shot) every . Ask your doctor about this.] Get Prompt Medical Attention if any of the following occur: Not getting better within the first 48 hours of treatment Increasing shortness of breath or rapid breathing (over 25 breaths/minute) Coughing up blood or increasing chest pain with breathing Fever of 100.4F (38C) oral or higher, not better with fever medication Increasing weakness, dizziness or fainting Increasing thirst or dry mouth Sinus pain, headache or a stiff neck Chest pain not caused by coughing You have been given the following additional information: Pneumonia (Adult) (Electronically signed by Sheryl Garcia MD 05/17/2016 16:12)
--- NOTE | 2016-05-17 16:13 | ED MED RECONCILIATION SUMMARY ---
Patient: NGOC SUTTON Medication Reconciliation Report [facility] VisitID: [id number] [place] [address] 65y, M Registration Date/Time: 05/11/2016 Weight: 127.0 kg Height/Length: 74 in. BMI: 36.0 ALLERGIES: Codeine The patient's Home Medications are listed below: CONTINUE TAKING THE FOLLOWING MEDICATIONS: Benazepril HCl Oral (20 mg) 1 tablet, daily Coumadin Oral (10 mg) 1 tablet, at bedtime Metoprolol 200mg, 2x a day The source(s) of the original Home Medication information: patient The following Medications were given to the patient in the Emergency Department: Rocephin [IVPB] IVPB bolus 0, then 2 gm 250 mL/hr, administered: 05/11/2016 5:55:00 PM Zithromax [PO] PO 500 mg, administered: 05/11/2016 5:55:00 PM The following Medications were prescribed to the patient: Zithromax Z-Lukasz: Take according to package instructions 2 orally today, followed by 1 orally every day for the next 4 days. Total course 5 days. No refills. Substitution is permissible. -- Sheryl Garcia MD
--- NOTE | 2016-05-17 16:13 | ED MAR SUMMARY ---
..... Medication Administration Record [facility] [address] [place] [address] Patient: NGOC SUTTON Visit ID: [id number] 65y, M Weight: 127.0 kg Height/Length: 74 in BMI: 36 ALLERGIES: Codeine Start 17:55 05/11/2016 Rashmi Tao R.N., Stop 18:15 05/11/2016 Rashmi Tao R.N. Medication Administered: ROCEPHIN [IVPB] (CEFTRIAXONE SODIUM), Dose: 2 gm IVPB over 15 minute(s), Rate: 250 mL/hr, Dispensed: 50 mL bag, Site: #1 left forearm. Medication Ordered: Rocephin IV 2 gm/50mL (NOW). Given 17:55 05/11/2016 Rashmi Tao R.N. Medication Administered: ZITHROMAX [PO], Dose: 500 mg Tablets PO. Medication Ordered: Zithromax PO 500 mg (NOW).
--- NOTE | 2016-05-17 16:13 | ED MAR SUMMARY ---
..... Medication Administration Record [facility] [address] [place] [address] Patient: NGOC SUTTON Visit ID: [id number] 65y, M Weight: 127.0 kg Height/Length: 74 in BMI: 36 ALLERGIES: Codeine Start 17:55 05/11/2016 Rashmi Tao R.N., Stop 18:15 05/11/2016 Rashmi Tao R.N. Medication Administered: ROCEPHIN [IVPB] (CEFTRIAXONE SODIUM), Dose: 2 gm IVPB over 15 minute(s), Rate: 250 mL/hr, Dispensed: 50 mL bag, Site: #1 left forearm. Medication Ordered: Rocephin IV 2 gm/50mL (NOW). Given 17:55 05/11/2016 Rashmi Tao R.N. Medication Administered: ZITHROMAX [PO], Dose: 500 mg Tablets PO. Medication Ordered: Zithromax PO 500 mg (NOW).
--- NOTE | 2016-05-17 16:13 | ED MED RECONCILIATION SUMMARY ---
Patient: NGOC SUTTON Medication Reconciliation Report [facility] VisitID: [id number] [place] [address] 65y, M Registration Date/Time: 05/11/2016 Weight: 127.0 kg Height/Length: 74 in. BMI: 36.0 ALLERGIES: Codeine The patient's Home Medications are listed below: CONTINUE TAKING THE FOLLOWING MEDICATIONS: Benazepril HCl Oral (20 mg) 1 tablet, daily Coumadin Oral (10 mg) 1 tablet, at bedtime Metoprolol 200mg, 2x a day The source(s) of the original Home Medication information: patient The following Medications were given to the patient in the Emergency Department: Rocephin [IVPB] IVPB bolus 0, then 2 gm 250 mL/hr, administered: 05/11/2016 5:55:00 PM Zithromax [PO] PO 500 mg, administered: 05/11/2016 5:55:00 PM The following Medications were prescribed to the patient: Zithromax Z-Lukasz: Take according to package instructions 2 orally today, followed by 1 orally every day for the next 4 days. Total course 5 days. No refills. Substitution is permissible. -- Sheryl Garcia MD
== END 2016-05-11 18:30 | disposition home or self-care (01) ==
LOC: ED SRH 14:50
DX: J15.9 Unspecified bacterial pneumonia (principal); Z86.718 Personal history of other venous thrombosis and embolism; I48.91 Unspecified atrial fibrillation; I10 Essential (primary) hypertension; F17.210 Nicotine dependence, cigarettes, uncomplicated; Z79.01 Long term (current) use of anticoagulants; Z79.899 Other long term (current) drug therapy; Z88.5 Allergy status to narcotic agent
CPT/HCPCS: 90100; 90616; 91400; 91556; 92610; 92720; 94001; 94060; 95059

== ENCOUNTER 2016-10-26 00:13 | Emergency (ER) | payer OTHER ==
[~2016-10-26 00:13] MED LIST changes: +AMOXICILLIN/CL875 MG PO; +DIPHENOXYLATE/2.5 MG PO; +LISINOPRIL10 MG PO; +WARFARIN SODIUM10 MG PO
--- NOTE | 2016-10-26 05:16 | ED CLINICAL REPORT ---
Clinical Report - Physicians/Mid Levels [facility] [address] [place] [address] 10/26/2016 0:15 Patient: NGOC SUTTON Time Seen: 01:15; initial patient contact. Arrived- By private vehicle. Historian- patient. HISTORY OF PRESENT ILLNESS Chief Complaint: DIARRHEA. This started about 1 week ago and is still present. It was gradual in onset. The patient has had nausea, diarrhea and mild, crampy abdominal pain. No vomiting, black stools, bloody stools, constipation or flank pain. Has recently been on antibiotics. The illness is described as moderate. Similar symptoms previously: None. Recent medical care: The patient was seen recently at this facility and hospitalized. REVIEW OF SYSTEMS No fever or difficulty with urination. All systems otherwise negative, except as recorded above. PAST HISTORY Elevated Cholesterol. Abscess. Diabetes Mellitus Type 2. Pneumonia. Alcohol Intoxication. Depression. DVT - Deep Venous Thrombosis. Tetanus Status. Immunizations. Pulmonary Embolism. Hypertension. Atrial Fibrillation. ADDITIONAL SURGERIES: Abscess removal. Hernia Repair. Knee Surgery. Medications: BuPROPion HCl Oral 300mg, daily. Warfarin Sodium Oral (Tablet 10 mg) 1 tablet, daily. Diltiazem HCl Oral 180 mg, daily. Metoprolol Tartrate Oral (Tablet 100 mg) 2 tablets, 2x daily. Amoxicillin TR-K Clavulanate Oral 1 tab, 2x daily. MetFORMIN HCl Oral (Tablet 500 mg) 1 tablet, 2x a day. Triamcinolone Acetonide External (Cream 0.1 %), 2x a day. Losartan Potassium Oral (Tablet 50 mg) 1 tablet, daily. Atorvastatin Calcium Oral (Tablet 20 mg) 1 tablet, daily. Celecoxib Oral (Capsule 200 mg) 1 capsule, daily. Venlafaxine HCl Oral 150 mg, daily. Hydrocodone-Acetaminophen Oral (Tablet 7.5-325 mg) 1 tablet, 2x a day. Furosemide Oral (Tablet 40 mg) 1 tablet, daily. Allergies: Codeine. SOCIAL HISTORY Former smoker. Alcohol use. Patient is a recovering alcoholic. No drug use. ADDITIONAL NOTES The nursing notes have been reviewed. PHYSICAL EXAM Vital Signs: 10/26/2016 01:16 BP: 139/90. HR: 62. RR: 16. O2 saturation: 99%. Temp: 98.7 F. Pain level now: 05/25. Have been reviewed. Hypertensive. Heart rate normal. Respiratory rate normal. Temperature normal. Oxygen saturation normal. Appearance: Alert. Oriented X3. No acute distress. Eyes: Eyes normal inspection. ENT: Dry mucous membranes present. CVS: Normal heart rate and rhythm. Heart sounds normal. Respiratory: No respiratory distress. Breath sounds normal. Abdomen: Soft and nontender. Bowel sounds normal. No organomegaly. No mass. Distention with tympany to percussion and dullness to percussion. Skin: Skin warm and dry. Normal skin color. No rash. Extremities: Bilateral 1+ pitting edema of the lower extremities involving both ankles. Neuro: Oriented X 3. LABS, X-RAYS, AND EKG Laboratory Tests: UA-Culture if indicated: (ELEUTERIO: 10/26/2016 02:33) ( [facility] 10/26/2016 02:52) Final results Test Result Flag Units (Reference) URINE COLOR YELLOW URINE APPEARANCE CLEAR URINE GLUCOSE NEGATIVE (NEGATIVE) URINE BILIRUBIN NEGATIVE (NEGATIVE) URINE KETONE NEGATIVE (NEGATIVE) URINE SPECIFIC GRAVITY <= 1.005 L (1.010-1.030) URINE PH 6.0 (5.0-8.0) URINE PROTEIN NEGATIVE (NEGATIVE) URINE UROBILINOGEN 0.2 EU/dL (0.2-1.0) URINE NITRITE NEGATIVE (NEGATIVE) URINE BLOOD NEGATIVE (NEGATIVE) URINE LEUK ESTERASE NEGATIVE (NEGATIVE) URINE RBC 0-1 rbc/hpf (0-1) URINE WBC 0-1 wbc/hpf (0-1) URINE EPITHELIAL CELLS 0-1 EPI/hpf (0-5) URINE BACTERIA NONE SEEN (NONE SEEN) URINE COMMENT CULT NOT INDICATED URINE CULTURES ARE SET-UP BASED ON THE FOLLOWING CRITERIA:POSITIVE NITRITEPOSITIVE LEUKOCYTE ESTERASEGREATER THAN 10 WHITE BLOOD CELLSMODERATE (2+) OR GREATER BACTERIA CBC w Diff: (ELEUTERIO: 10/26/2016 02:15) ( [facility] 10/26/2016 02:26) Final results Test Result Flag Units (Reference) WHITE BLOOD COUNT 11.4 K/uL (4.5-11.5) RED BLOOD COUNT 4.24 L M/uL (4.50-5.90) HEMOGLOBIN 12.2 L gm/dL (13.5-17.5) HEMATOCRIT 37.5 L % (41.0-53.0) MEAN CELL VOLUME 88 fL (80-100) MEAN CORPUSCULAR HGB 29 pg (26-34) MEAN CORPUSCULAR HGB CONC 33 g/dL (31-37) RED CELL DISTRIBUTION WIDTH 15.7 H % (11.6-14.8) PLATELET COUNT 377 K/uL (150-400) NEUTROPHIL % 67.3 % (50-75) LYMPH % 23.7 L % (25-40) MONO % 6.8 % (3-14) EOSINOPHIL % 2.0 % (0-4) BASOPHIL % 0.2 % (0-2) PT with INR: (ELEUTERIO: 10/26/2016 02:15) ( [facility] 10/26/2016 02:58) Final results Test Result Flag Units (Reference) INR 1.4 H (0.8-1.2) Low Intensity Therapy: INR 1.5-2.0 PT range 18.5-23.1Mod.Intensity Therapy: INR 2.0-3.0 PT range 23.1-31.5High Intensity Therapy: INR 2.5-3.5 PT range 27.4-35.5High Intensity Therapy 2: INR 3.0-4.0 PT range 31.5-39.3 APTT 42 H SECONDS (24-34) BNP: (ELEUTERIO: 10/26/2016 02:15) ( [facility] 10/26/2016 02:47) Final results Test Result Flag Units (Reference) B-TYPE NATRIURETIC PEPTIDE 1110 H pg/ml (5-100) CMP: (ELEUTERIO: 10/26/2016 02:15) ( [facility] 10/26/2016 02:37) Final results Test Result Flag Units (Reference) GLUCOSE 113 H mg/dL (70-110) BUN 21 H mg/dL (7-18) CREATININE 1.8 H mg/dL (0.6-1.3) Estimated GFR 40.20 mL/min Estimated GFR- 48.72 mL/min Note: Persistent reduction over 3 months in eGFR<60 mL/min/1.73 m2 defines CKD. Patients with eGFR values>=60 mL/min/1.73 m2 may also have CKD if evidence ofpersistent proteinuria. Additional information may be foundat www.kidney.org. SODIUM 142 mmol/L (136-145) POTASSIUM 3.9 mmol/L (3.5-5.1) CHLORIDE 105 mmol/L (98-107) CARBON DIOXIDE 27 mmol/L (21-32) CALCIUM 8.5 mg/dL (8.5-10.1) TOTAL PROTEIN 6.8 g/dL (6.4-8.2) ALBUMIN 2.8 L g/dL (3.3-5.0) BILIRUBIN, TOTAL 0.3 mg/dL (0.0-1.0) ALKALINE PHOSPHATASE 67 U/L (46-116) AST (SGOT) 39 H U/L (15-37) ALT (SGPT) 50 U/L (12-78) . PROGRESS AND PROCEDURES Course of Care: Normal WBC, non-tender abdominal exam, and pt has been here for ~ 5 hours w/out a single BM, less likely C diff and more likely due to Metformin(which needs to be held due to Cr > 1.6). Disposition: Discharged home in good and improved condition. Condition: good. CLINICAL IMPRESSION Diarrhea Acute renal insufficiency. Type 2 diabetes. INSTRUCTIONS Follow a low salt diet. (Obtain a stool sample and bring here for analysis. Take a probiotic daily). Your Current Medications: STOP TAKING THE FOLLOWING MEDICATIONS: MetFORMIN HCl Oral : Tablet 500 mg, 1 tablet 2x a day. CONTINUE TAKING THE FOLLOWING MEDICATIONS: Amoxicillin TR-K Clavulanate Oral : 1 tab 2x daily. Atorvastatin Calcium Oral : Tablet 20 mg, 1 tablet daily. BuPROPion HCl Oral : 300mg daily. Celecoxib Oral : Capsule 200 mg, 1 capsule daily. Diltiazem HCl Oral : 180 mg daily. Furosemide Oral : Tablet 40 mg, 1 tablet daily. Hydrocodone-Acetaminophen Oral : Tablet 7.5-325 mg, 1 tablet 2x a day. Losartan Potassium Oral : Tablet 50 mg, 1 tablet daily. Metoprolol Tartrate Oral : Tablet 100 mg, 2 tablets 2x daily. Triamcinolone Acetonide External : Cream 0.1 %, 2x a day. Venlafaxine HCl Oral : 150 mg daily. Warfarin Sodium Oral : Tablet 10 mg, 1 tablet daily. Prescription Medications: Glyburide 5 mg: take 1 orally every 24 hours. Dispense fifteen (15). No refills. Follow-up: Follow up with your doctor in about three days. Call for an appointment. Blood pressure screening was not performed during this visit because the patient has an active diagnosis of hypertension. (Electronically signed by Eleazar Grant Dr. 10/26/2016 5:59)
--- NOTE | 2016-10-26 05:16 | ED ORDER SUMMARY ---
..... Patient: NGOC SUTTON OrderSheet [facility] VisitID: [id number] [place] [address] 66y, M Registration Date/Time: 10/26/2016 ORDER SHEET Weight: 131.5 kg (stated) Allergies: Codeine GENERAL ORDERS: CBC w Diff Urgent (02:10/26/2016 Ron Patel) (Ack 2:15 Romulouga) (Collected 2:30 RMarsden R.N.) (2:45 RMarsden R.N.) CMP Urgent (02:10/26/2016 Ron Patel) (Ack 2:15 Romulouga) (Collected 2:30 RMarsden R.N.) (2:45 RMarsden R.N.) UA-Culture if indicated Urgent (02:10/26/2016 Ron Patel) (Ack 2:15 Malachi) (Collected 2:30 RMarsden R.N.) (3:11 RMarsden R.N.) BNP Urgent (02:10/26/2016 Ron Patel) (Ack 2:15 GWENDOLYNaruga) (Collected 2:30 RMarsden R.N.) (2:45 RMarsden R.N.) Stool for C. Difficile Urgent (02:10/26/2016 Ron Patel) (Ack 2:15 Romulouga) (Cancelled: Unable to Collect5:43 RMarsden R.N.) Stool WBC Urgent (02:10/26/2016 Ron Patel) (Ack 2:15 Romulouga) (Cancelled: Unable to Collect5:43 RMarsden R.N.) PT with INR Urgent (02:48 10/26/2016 Ron Patel) (Ack 3:02 Malachi) (3:11 RMarsden R.N.) PTT Urgent (02:48 10/26/2016 Ron Patel) (Ack 3:02 Malachi) (3:11 RMarsden R.N.) MEDICATION ORDERS: IV FLUIDS: IV NS : initial bolus none -, then 1000 mL/hr for X1 (NOW) (02:09 10/26/2016 Ron Patel) (2:45 RMarsden R.N.) (Cancelled: Physician Order3:10 Ron Patel) Lasix IV 40 mg (NOW) (03:10 10/26/2016 Ron Patel) (Ack 3:11 RMarsden R.N.) (3:21 RMarsden R.N.) Zofran IV 4 mg (NOW) (03:35 10/26/2016 RMarsjuany R.N. verbal order read back to Ron Patel) (3:35 RMarsden R.N.) Verbal order read back and verified ORDER SHEET NOTES: [Electronically signed by Raeann Campbell R.N. (05:44 10/26/2016)] [Electronically signed by Eleazar Grant Dr. (05:59 10/26/2016)] [Electronically locked/signed by Raeann Campbell R.N. (05:44 10/26/2016)]
--- NOTE | 2016-10-26 05:16 | ED NURSING NOTES ---
Clinical Report - Nurses [facility] [address] [place] [address] 10/26/2016 0:15 Patient: NGOC SUTTON TRIAGE Triage time 01:11. Acuity: LEVEL 3. Chief Complaint: DIARRHEA. Alert. No acute distress. SEPSIS SCREEN: Sepsis Screen. Negative (no infection suspected/documented). GENIA COMA SCORE: Genia Coma Scale: 15- eyes open spontaneously (4); best verbal response- oriented x 4 (5); best motor response- obeys commands (6). --01:42 Raeann Campbell R.N. 01:16 10/26/16. BP: 139/90. HR: 62. RR: 16. O2 saturation: 99% at 2 liters/minute. Temp: 98.7 F. Pain level now: 05/25. --01:42 Raeann Campbell R.N. Weight: 131.5 kg stated. Height/Length: 74 inches Per Patient. BMI: 37.2. --01:41 Raeann Campbell R.N. Medications Furosemide Oral (Tablet 40 mg) 1 tablet, daily. --01:20 Raeann Campbell R.N. Hydrocodone-Acetaminophen Oral (Tablet 7.5-325 mg) 1 tablet, 2x a day. --01:21 Raeann Campbell R.N. Venlafaxine HCl Oral 150 mg, daily. --01:22 Raeann Campbell R.N. Celecoxib Oral (Capsule 200 mg) 1 capsule, daily. --01:23 Raeann Campbell R.N. Atorvastatin Calcium Oral (Tablet 20 mg) 1 tablet, daily. --01:23 Raeann Campbell R.N. Losartan Potassium Oral (Tablet 50 mg) 1 tablet, daily. --01:24 Raeann Campbell R.N. Triamcinolone Acetonide External (Cream 0.1 %), 2x a day. --01:25 Raeann Campbell R.N. MetFORMIN HCl Oral (Tablet 500 mg) 1 tablet, 2x a day. --:25 Raeann Campbell R.N. Amoxicillin TR-K Clavulanate Oral 1 tab, 2x daily. --: Raeann Campbell R.N. Metoprolol Tartrate Oral (Tablet 100 mg) 2 tablets, 2x daily. --: Raeann Campbell R.N. Diltiazem HCl Oral 180 mg, daily. --: Raeann Campbell R.N. Warfarin Sodium Oral (Tablet 10 mg) 1 tablet, daily. --: Reaann Campbell R.N. BuPROPion HCl Oral 300mg, daily. --: Raeann Campbell R.N. Allergies Codeine. --: Raeann Campbell R.N. History Arrived by private vehicle. Historian: patient. Accompanied by family. Primary physician (Dr Poe). Onset. (last Saturday). ( Patient's states patient was in the hospital for surgical removal of abscess between scrotum and prostate last week. Since he was in the hospital, he reports he has had "uncontrollable diarrhea"). 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 PAST MEDICAL HX: Immunizations: up-to-date. SOCIAL HX: Smoker- current status unknown (patient is currently using nicotine patch). Alcohol use. Patient is a recovering alcoholic. FALL RISK ASSESSMENT: Fall risk assessment completed. No fall risk identified. NUTRITIONAL RISK ASSESSMENT: The nutritional risk assessment revealed no deficiencies. FUNCTIONAL ASSESSMENT: Functional assessment: no impairments noted. LEARNING NEEDS ASSESSMENT: The learning needs assessment revealed no barriers. SKIN INTEGRITY ASSESSMENT: Skin integrity risk assessment completed. No skin integrity risk identified. --:42 Raeann Campbell R.N. PROBLEMS: Elevated Cholesterol. Abscess. Diabetes Mellitus Type 2. Pneumonia. Alcohol Intoxication. Depression. DVT - Deep Venous Thrombosis. Tetanus Status. Immunizations. Pulmonary Embolism. Hypertension. Atrial Fibrillation. --:32 Raeann Campbell R.N. ADDITIONAL SURGERIES: Abscess removal. Hernia Repair. Knee Surgery. --:32 Raeann Campbell R.N. Interventions ID band on patient. To treatment room. --:42 Raeann Campbell R.N. PHYSICAL ASSESSMENT 01:52 10/26/16. To room via wheelchair. GENERAL / NEURO / PSYCH: Alert. Oriented X 4. Appears in no acute distress. HEENT: Mucous membranes are pink. RESPIRATORY: Respirations not labored. CVS: Capillary refill less than 2 seconds. GI / : Abdominal distention. Abdomen nontender. Bowel sounds within normal limits. SKIN: Skin is warm and dry. --01:52 Raeann Campbell R.N. NURSING PROGRESS NOTES 01:52 10/26/16. Monitoring of patient in place. Patient gowned. Two patient identifiers checked. Call light placed in reach. Side rails up x 2. Bed placed in lowest position. Brakes of bed on. --01:52 Raeann Campbell R.N. 02:20 10/26/2016 Site #1 started via IV in the left antecubital space with an 20g angiocath; one attempt. Blood drawn: rainbow set. Labeled in the presence of the patient and sent to the lab. Saline lock flushed with 10 mL saline. --02:45 Raeann Campbell R.N. 02:40 10/26/2016 Started bag #1 1000 mL IV Fluids IV NS (Saline); at 999 mL/hr over 1 hour(s) via site #1 via IV pump. Allergies verified and confirmed 5 rights. IV patency established. IV site checked: no pain, redness, or swelling. IV flushed thoroughly pre- and post-medication administration. Completed per protocol. --02:45 Raeann Campbell R.N. 03:00 10/26/2016 IV Fluids IV NS Discontinued: bag #1 STOPPED. Total amount infused: 200 mL. IV patency established. IV site checked: no pain, redness, or swelling. IV flushed thoroughly. (discontinued per ED MD order.). --03:34 Raeann Campbell R.N. 03:16 10/26/2016 Lasix IVP 40 mg given over 5 minute(s) via site #1. Allergies verified and confirmed 5 rights. IV patency established. IV site checked: no pain, redness, or swelling. IV flushed thoroughly pre- and post-medication administration. IVP given by RN. --03:21 Raeann Campbell R.N. 03:30 10/26/2016 Zofran (Ondansetron HCl) IVP 4 mg given over 2 minute(s) via site #1. Allergies verified and confirmed 5 rights. IV patency established. IV site checked: no pain, redness, or swelling. IV flushed thoroughly pre- and post-medication administration. IVP given by RN. --03:35 Raeann Campbell R.N. 02:16. Patient ID band checked for patient name and birthdate: patient confirmed. Instructions provided to collect clean catch urine and patient verbalized understanding. Clean catch urine collected with return of yellow-colored clear urine; sample sent to lab for urinalysis. Specimen labeled in the presence of the patient. --05:07 Raeann Campbell R.N. late entry - 02:20. Patient ID band checked for patient name and birthdate. Blood samples drawn from the left antecubital space by nurse per protocol ; labeled in presence of the patient and sent to lab: rainbow set. --05:08 Raeann Campbell R.N. late entry - 03:16. Call light placed in reach. Patient and family informed about reason for wait and about plan of care. ( Patient states he is experiencing nausea. ED MD notified. Verbal orders given.). --05:10 Raeann Campbell R.N. 04:30. Reassurance given to the patient and patient's family. Call light placed in reach. Side rails up x 1. Bed placed in lowest position. Brakes of bed on. ( Helped patient with clean up after he urinated and some spilled on his legs and onto he floor. Helped patient back into bed after cleanup. Pillows given to patient and his for comfort). --04:57 Peyton Lr 05:03. Reassurance given. Reassessment after medication administered. He reports no complaints, he is resting quietly and he has had no adverse reaction. Overall patient status- he states feels better. ( Patient states his nausea has subsided. He reports he is still unable to produce a stool sample.). SKIN: Skin is warm and dry. Skin color within normal limits. --05:13 Raeann Campbell R.N. 05:18 10/26/2016 Site #1 removed upon discharge. Manual pressure and bandaid applied. --05:43 Raeann Campbell R.N. Intake & Output 04:30. Urine: 1000 mL, with return of yellow-colored clear urine; odor is normal. --04:57 Peyton Lr 05:12. Urine, with return of 500 mL urine. --05:42 Raeann Campbell R.N. DISPOSITION / DISCHARGE 05:23. No learning barriers present. Discharge instructions provided and reviewed. Reviewed warnings. Reviewed medication(s). Reviewed diet. Patient and spouse verbalized understanding. Written instructions provided in Hong [place]er. The patient was discharged home and accompanied by spouse. He left the Emergency Department ambulatory and via private vehicle. Spouse driving. --05:40 Raeann Campbell R.N. 05:15 10/26/16. BP: 116/89. HR: 69. RR: 23. O2 saturation: 93% on room air. Temp: 97.7 F. Pain level now: 0/10. --05:40 Raeann Campbell R.N. Locked/Released at 10/26/2016 5:44 by Raeann Campbell R.N.
--- NOTE | 2016-10-26 05:16 | ED ORDER SUMMARY ---
..... Patient: NGOC SUTTON OrderSheet [facility] VisitID: [id number] [place] [address] 66y, M Registration Date/Time: 10/26/2016 ORDER SHEET Weight: 131.5 kg (stated) Allergies: Codeine GENERAL ORDERS: CBC w Diff Urgent (02:10/26/2016 Ron Patel) (Ack 2:15 Romulouga) (Collected 2:30 RMarsden R.N.) (2:45 RMarsden R.N.) CMP Urgent (02:10/26/2016 Ron Patel) (Ack 2:15 Romulouga) (Collected 2:30 RMarsden R.N.) (2:45 RMarsden R.N.) UA-Culture if indicated Urgent (02:10/26/2016 Ron Patel) (Ack 2:15 Malachi) (Collected 2:30 RMarsden R.N.) (3:11 RMarsden R.N.) BNP Urgent (02:10/26/2016 Ron Patel) (Ack 2:15 GWENDOLYNaruga) (Collected 2:30 RMarsden R.N.) (2:45 RMarsden R.N.) Stool for C. Difficile Urgent (02:10/26/2016 Ron Patel) (Ack 2:15 Romulouga) (Cancelled: Unable to Collect5:43 RMarsden R.N.) Stool WBC Urgent (02:10/26/2016 Ron Patel) (Ack 2:15 Romulouga) (Cancelled: Unable to Collect5:43 RMarsden R.N.) PT with INR Urgent (02:48 10/26/2016 Ron Patel) (Ack 3:02 Malachi) (3:11 RMarsden R.N.) PTT Urgent (02:48 10/26/2016 Ron Patel) (Ack 3:02 Malachi) (3:11 RMarsden R.N.) MEDICATION ORDERS: IV FLUIDS: IV NS : initial bolus none -, then 1000 mL/hr for X1 (NOW) (02:09 10/26/2016 Ron Patel) (2:45 RMarsden R.N.) (Cancelled: Physician Order3:10 Ron Patel) Lasix IV 40 mg (NOW) (03:10 10/26/2016 Ron Patel) (Ack 3:11 RMarsden R.N.) (3:21 RMarsden R.N.) Zofran IV 4 mg (NOW) (03:35 10/26/2016 RMarsjuany R.N. verbal order read back to Ron Patel) (3:35 RMarsden R.N.) Verbal order read back and verified ORDER SHEET NOTES: [Electronically signed by Raeann Campbell R.N. (05:44 10/26/2016)] [Electronically signed by Eleazar Grant Dr. (05:59 10/26/2016)] [Electronically locked/signed by Raeann Campbell R.N. (05:44 10/26/2016)]
--- NOTE | 2016-10-26 06:00 | ED MED RECONCILIATION SUMMARY ---
Patient: NGOC SUTTON Medication Reconciliation Report [facility] VisitID: [id number] [place] [address] 66y, M Registration Date/Time: 10/26/2016 Weight: 131.5 kg Height/Length: 74 in. BMI: 37.2 ALLERGIES: Codeine The patient's Home Medications are listed below: STOP TAKING THE FOLLOWING MEDICATIONS: MetFORMIN HCl Oral (500 mg) 1 tablet, 2x a day CONTINUE TAKING THE FOLLOWING MEDICATIONS: Amoxicillin TR-K Clavulanate Oral 1 tab, 2x daily Atorvastatin Calcium Oral (20 mg) 1 tablet, daily BuPROPion HCl Oral 300mg, daily Celecoxib Oral (200 mg) 1 capsule, daily Diltiazem HCl Oral 180 mg, daily Furosemide Oral (40 mg) 1 tablet, daily Hydrocodone-Acetaminophen Oral (7.5-325 mg) 1 tablet, 2x a day Losartan Potassium Oral (50 mg) 1 tablet, daily Metoprolol Tartrate Oral (100 mg) 2 tablets, 2x daily Triamcinolone Acetonide External (0.1 %), 2x a day Venlafaxine HCl Oral 150 mg, daily Warfarin Sodium Oral (10 mg) 1 tablet, daily The source(s) of the original Home Medication information: Not obtained. The following Medications were given to the patient in the Emergency Department: IV NS IV Fluids bolus 0, then 999 mL/hr, administered: 10/26/2016 2:40:00 AM Lasix [IVP] IVP 40 mg, administered: 10/26/2016 3:16:00 AM Zofran [IVP] IVP 4 mg, administered: 10/26/2016 3:30:00 AM The following Medications were prescribed to the patient: Glyburide 5 mg: take 1 orally every 24 hours. Dispense fifteen (15). No refills. -- Eleazar Grant Dr.
--- NOTE | 2016-10-26 06:00 | ED MAR SUMMARY ---
..... Medication Administration Record [facility] [address] [place] [address] Patient: NGOC SUTTON Visit ID: [id number] 66y, M Weight: 131.5 kg Height/Length: 74 in BMI: 37.2 ALLERGIES: Codeine Start 02:40 10/26/2016 Raeann Campbell R.N., Stop 03:00 10/26/2016 Raeann Campbell R.N. Medication Administered: IV NS (SALINE), Dose: IV Fluids over 1 hour(s), Rate: 999 mL/hr, Dispensed: 1000 mL bag, Site: #1 left AC. Medication Ordered: IV NS : initial bolus none -, then 1000 mL/hr for X1 (NOW). Given 03:16 10/26/2016 Raeann Campbell R.N. Medication Administered: LASIX [IVP], Dose: 40 mg IVP over 5 minute(s), Site: #1 left AC. Medication Ordered: Lasix IV 40 mg (NOW). Given 03:30 10/26/2016 Raeann Campbell R.N. Medication Administered: ZOFRAN [IVP] (ONDANSETRON HCL), Dose: 4 mg IVP over 2 minute(s), Site: #1 left AC. Medication Ordered: Zofran IV 4 mg (NOW).
--- NOTE | 2016-10-26 06:00 | ED DISCHARGE INSTRUCTIONS ---
Patient: NGOC SUTTON General Instructions [facility] VisitID: [id number] [place] [address] 66y, M Registration Date/Time: 10/26/2016 Diarrhea Acute renal insufficiency. Type 2 diabetes. INSTRUCTIONS Follow a low salt diet. (Obtain a stool sample and bring here for analysis. Take a probiotic daily). Your Current Medications: STOP TAKING THE FOLLOWING MEDICATIONS: MetFORMIN HCl Oral : Tablet 500 mg, 1 tablet 2x a day. CONTINUE TAKING THE FOLLOWING MEDICATIONS: Amoxicillin TR-K Clavulanate Oral : 1 tab 2x daily. Atorvastatin Calcium Oral : Tablet 20 mg, 1 tablet daily. BuPROPion HCl Oral : 300mg daily. Celecoxib Oral : Capsule 200 mg, 1 capsule daily. Diltiazem HCl Oral : 180 mg daily. Furosemide Oral : Tablet 40 mg, 1 tablet daily. Hydrocodone-Acetaminophen Oral : Tablet 7.5-325 mg, 1 tablet 2x a day. Losartan Potassium Oral : Tablet 50 mg, 1 tablet daily. Metoprolol Tartrate Oral : Tablet 100 mg, 2 tablets 2x daily. Triamcinolone Acetonide External : Cream 0.1 %, 2x a day. Venlafaxine HCl Oral : 150 mg daily. Warfarin Sodium Oral : Tablet 10 mg, 1 tablet daily. Prescription Medications: Glyburide 5 mg: take 1 orally every 24 hours. Dispense fifteen (15). No refills. Follow-up: Follow up with your doctor in about three days. Call for an appointment. Blood pressure screening was not performed during this visit because the patient has an active diagnosis of hypertension. ADDITIONAL INFORMATION Diarrhea, Uncertain Cause (Adult, Report Pending) Diarrhea has several possible causes. Commonstomach fluis caused by a virus. Food poisoning, bacteria or parasites are other causes for diarrhea. Only diarrhea caused by bacteria or parasites requires treatment with an antibiotic. Diarrhea from a virus or food poisoning improves with simple home treatment. A stool sample is needed to make the diagnosis of an infection with bacteria or parasites. Up to three stool specimens may be required to diagnose This may take up to two days to get the result. It may be necessary to wait until the stool test is complete to make the diagnosis and select the best antibiotic to prescribe. Home Care: If symptoms are severe, rest at home for the next 24 hours or until you are feeling better. You may use acetaminophen (Tylenol) or ibuprofen (Motrin, Advil) to control fever, unless another medicine was prescribed. [NOTE: If you have chronic liver or kidney disease or ever had a stomach ulcer or GI bleeding, talk with your doctor before using these medicines.] (Aspirin should never be used in anyone under 18 years of age who is ill with a fever. It may cause severe liver damage.) Avoid tobacco, caffeine and alcohol, which may worsen your symptoms. If anti-diarrhea medicine was prescribed, take this only as directed. Sometimes anti-diarrhea medicine can make your condition worse if the cause is an infectious diarrhea. Therefore, anti-diarrhea medicine should not be taken for this condition unless advised by your doctor. During The First 12-24 Hours follow the diet below: BEVERAGES: Sport drinks like Gatorade, soft drinks without caffeine; junie deborah, mineral water (plain or flavored), decaffeinated tea and coffee. SOUPS: Clear broth, consomm and bouillon DESSERTS: Plain gelatin (Jell-O), popsicles and fruit juice bars. During The Next 24 Hours you may add the following to the above: Hot cereal, plain toast, bread, rolls, crackers Plain noodles, rice, mashed potatoes, chicken noodle or rice soup Unsweetened canned fruit (avoid pineapple), bananas Limit fat intake to less than 15 grams per day by avoiding margarine, butter, oils, mayonnaise, sauces, gravies, fried foods, peanut butter, meat, poultry and fish. Limit fiber; avoid raw or cooked vegetables, fresh fruits (except bananas) and bran cereals. Limit caffeine and chocolate. No spices or seasonings except salt. During The Next 24 Hours Gradually resume a normal diet, as you feel better and your symptoms lessen. Follow Up with your doctor or as advised if you are not improving over the next two days. If you were asked to bring a specimen from home, bring the sample on the day of collection. You may call in 2 days (or as directed) for the results. Get Prompt Medical Attention if any of the following occur: Increasing abdominal pain or constant lower right abdominal pain Continued vomiting (unable to keep liquids down) Frequent diarrhea (more than 5 times a day) Blood in vomit or stool (black or red color) Reduced oral intake Dark urine, reduced urine output Weakness, dizziness, fainting Drowsiness, confusion, stiff neck or seizure Fever of 100.4F (38C) oral or higher, not better with fever medication New rash Renal Insufficiency The role of the kidneys is to remove waste products and excess water from the body. When the kidneys do not function normally, waste products build up in the blood.The early stage of this process is called renal insufficiency . If renal insufficiency worsens it can lead to chronic renal failure. This allows excess water, waste and toxic substances to build up in the body. This can become a threat to life, requiring dialysis or a kidney transplant to stay alive. Diabetes is the leading causes of renal insufficiency. Other causes include high blood pressure, hardening of the arteries, lupus, inflammation of the blood vessels (vasculitis), prior viral and bacterial infections, and others. Certain [id number] pain medicines can cause renal failure when taken often over a long period of time. These include aspirin, ibuprofen (Advil, Motrin) and related anti-inflammatory medicines. Home Care: If you have diabetes, talk to your doctor about the quality of your blood sugar control.Ask about any changes needed to your diet or medicines. If you have high blood pressure: Take your blood pressure medicine. Take up a regular exercise program that you enjoy.Check with your doctor to be sure your planned exercise program is right for you. Reduce your salt (sodium) intake.Your doctor can tell you how much salt per day is safe for you. If you are overweight, talk to your doctor about a weight loss plan. If you smoke, you must quit.Smoking worsens kidney disease.Talk to your doctor about ways to help you quit.For more information, visit the following links: www.smokefree.gov/pubs/clearing_the_air.pdf www.smokefree.gov www.quitnet.com Talk to your doctor about any dietary restrictions advised. In general, it is advisable to limit protein, salt, potassium and phosphorus.Avoid excess fluids. Do not add salt at the table and avoid salty foods.A calcium supplement may be prescribed to protect your bones from osteoporosis. Avoid the following over the counter medicines, or consult your doctor before using: Aspirin and anti-inflammatory drugs such as ibuprofen (Advil, Motrin), naprosyn (Aleve); [Short term use of acetaminophen (Tylenol) for fever or pain is okay.] Laxatives and antacids containing magnesium or aluminum (Mylanta, Maalox) Avoid Fleet or phosphosoda enemas which contain phosphorus Certain stomach acid-blocking medicine such as cimetidine (Tagamet), ranitidine (Zantac) Decongestants containing pseudoephedrine (such as some forms of Sudafed or Actifed) Herbal supplements Follow Up with your doctor or as advised by our staff. Contact one of the following for more information. [place] [employer] [phone] [phone] www.aakp.org National Kidney Foundation www.kidney.org Return Promptly or contact your doctor if any of the following occurs: Nausea or vomiting Severe weakness, dizziness, fainting, drowsiness or confusion Chest pain or shortness of breath Unexpected weight gain or swelling in the legs, ankles or around the eyes Heart beating fast, slow or irregularly Decrease or loss in urine output Low-Salt Diet (2 Grams/Day) This diet eliminates foods that are high in salt and restricts the amount of salt that you cook with. It is most often used for patients with high blood pressure, edema (fluid retention), kidney, liver, and heart disease. Table salt contains the mineral sodium. The body needs sodium to work normally. But too much sodium can make your health problems worse. Your healthcare provider is recommending a low-salt (also called low-sodium) diet for you. Your total daily allowance of salt (sodium) is 2 grams. This equals 2,000 milligrams (mg). It is less than 1 teaspoon of table salt. This means you can have only about 700 mg of sodium at each meal. When you cook, limit the salt you use. And if you can avoid using salt, even better. Do not add salt at the table. So, throw away the saltshaker! When shopping, read the package labels. Salt is often called sodium on the label. Choose foods that are Salt-Free, Low Salt, or Very Low Salt. Note that foods with Reduced Salt may notlower your salt intake enough. Beverages OK: Tea, coffee, carbonated beverages, juices AVOID: Flavored international coffees, electrolyte replacement drinks, sports beverages Bread & Cereals OK: All regular bread, rolls, cereals, cakes; low-salt crackers, matzoh crackers AVOID: Salted crackers, pretzels, popcorn; croatian toast, pancakes, muffins Fruits & Desserts OK: Ice cream, frozen yogurt, juice bars, gelatin (Jell-O), cookies and pies, sugar, honey, jelly, hard candy AVOID: Most pies, cakes and cookies prepared or processed with salt, instant pudding Meats OK: All fresh meat, fish, poultry, low-salt tuna AVOID: Smoked, pickled, brine-cured, or salted meats or fish. Thisincludes gutierrez, chipped beef, corned beef, hot dogs, luncheon meats, ham, kosher meats, salt pork, sausage, canned tuna, salted codfish, smokedsalmon, scruggs, sardines, or anchovies. Dairy OK: Milk, chocolate milk, hot chocolate mix; eggs, Low Salt cheeses, yogurt, egg substitute AVOID: Processed cheese, cheese spreads, Roquefort, Camembert, and cottage cheese, buttermilk, instant breakfast drink Beans, Potatoes & Pasta OK: Dry beans, split peas, lentils, potatoes, rice, macaroni, noodles, spaghetti without added salt AVOID: Potato chips, tortilla chips, and similar products Soups OK: Low-salt soups and broths made with allowed foods AVOID: Bouillon cubes, soups with smoked or salted meats, regular soup and broth Vegetables OK: Most are okay; low-salt tomato and vegetable juices AVOID: Sauerkraut and other brine-soaked vegetables, pickles and other pickled vegetables, tomato juice, olives Seasoning & Spices OK: Most seasonings are okay. Good substitutes for salt include: fresh herb blends, Tabasco, lemon, garlic, chen, vinegar, dry mustard, parsley, cilantro, horseradish, tomato paste, regular margarine, mayonnaise, butter, cream cheese, vegetable oil, cream, low-salt salad dressing and gravy AVOID: Regular ketchup, relishes, pickles, soy sauce, teriyaki sauce, Worcestershire sauce, BBQ sauce, tartar sauce, meat tenderizer, chili sauce, regular gravy, regular salad dressing You have been given the following additional information: Diarrhea, Unk Cause (Adult) Report Pendg Renal Insufficiency Diet, Low Salt (2Gm) (Electronically signed by Eleazar Grant Dr. 10/26/2016 5:59)
--- NOTE | 2016-10-26 06:00 | ED MED RECONCILIATION SUMMARY ---
Patient: NGOC SUTTON Medication Reconciliation Report [facility] VisitID: [id number] [place] [address] 66y, M Registration Date/Time: 10/26/2016 Weight: 131.5 kg Height/Length: 74 in. BMI: 37.2 ALLERGIES: Codeine The patient's Home Medications are listed below: STOP TAKING THE FOLLOWING MEDICATIONS: MetFORMIN HCl Oral (500 mg) 1 tablet, 2x a day CONTINUE TAKING THE FOLLOWING MEDICATIONS: Amoxicillin TR-K Clavulanate Oral 1 tab, 2x daily Atorvastatin Calcium Oral (20 mg) 1 tablet, daily BuPROPion HCl Oral 300mg, daily Celecoxib Oral (200 mg) 1 capsule, daily Diltiazem HCl Oral 180 mg, daily Furosemide Oral (40 mg) 1 tablet, daily Hydrocodone-Acetaminophen Oral (7.5-325 mg) 1 tablet, 2x a day Losartan Potassium Oral (50 mg) 1 tablet, daily Metoprolol Tartrate Oral (100 mg) 2 tablets, 2x daily Triamcinolone Acetonide External (0.1 %), 2x a day Venlafaxine HCl Oral 150 mg, daily Warfarin Sodium Oral (10 mg) 1 tablet, daily The source(s) of the original Home Medication information: Not obtained. The following Medications were given to the patient in the Emergency Department: IV NS IV Fluids bolus 0, then 999 mL/hr, administered: 10/26/2016 2:40:00 AM Lasix [IVP] IVP 40 mg, administered: 10/26/2016 3:16:00 AM Zofran [IVP] IVP 4 mg, administered: 10/26/2016 3:30:00 AM The following Medications were prescribed to the patient: Glyburide 5 mg: take 1 orally every 24 hours. Dispense fifteen (15). No refills. -- Eleazar Grant Dr.
--- NOTE | 2016-10-26 06:00 | ED MAR SUMMARY ---
..... Medication Administration Record [facility] [address] [place] [address] Patient: NGOC SUTTON Visit ID: [id number] 66y, M Weight: 131.5 kg Height/Length: 74 in BMI: 37.2 ALLERGIES: Codeine Start 02:40 10/26/2016 Raeann Campbell R.N., Stop 03:00 10/26/2016 Raeann Campbell R.N. Medication Administered: IV NS (SALINE), Dose: IV Fluids over 1 hour(s), Rate: 999 mL/hr, Dispensed: 1000 mL bag, Site: #1 left AC. Medication Ordered: IV NS : initial bolus none -, then 1000 mL/hr for X1 (NOW). Given 03:16 10/26/2016 Raeann Campbell R.N. Medication Administered: LASIX [IVP], Dose: 40 mg IVP over 5 minute(s), Site: #1 left AC. Medication Ordered: Lasix IV 40 mg (NOW). Given 03:30 10/26/2016 Raeann Campbell R.N. Medication Administered: ZOFRAN [IVP] (ONDANSETRON HCL), Dose: 4 mg IVP over 2 minute(s), Site: #1 left AC. Medication Ordered: Zofran IV 4 mg (NOW).
== END 2016-10-26 05:23 | disposition home or self-care (01) ==
LOC: ED SRH 00:13
DX: N28.9 Disorder of kidney and ureter, unspecified (principal); E11.9 Type 2 diabetes mellitus without complications; R19.7 Diarrhea, unspecified; I10 Essential (primary) hypertension; I48.91 Unspecified atrial fibrillation; Z79.1 Long term (current) use of non-steroidal anti-inflammatories (NSAID); Z79.84 Long term (current) use of oral hypoglycemic drugs; Z88.5 Allergy status to narcotic agent; Z79.01 Long term (current) use of anticoagulants; Z79.899 Other long term (current) drug therapy
CPT/HCPCS: 90004; 90100; 91320; 94001; 94060; 95059

== ENCOUNTER 2016-10-26 16:20 | Outpatient (CLI) | payer OTHER | END 2016-10-26 23:00 | LOC: LAB SRH 16:20 | DX: R19.7 Diarrhea, unspecified (principal) | CPT/HCPCS: 90112; 90455; 99262 ==